=== PATIENT | male | born 1955 | race Caucasian/White ===

== ENCOUNTER 2022-05-30 16:57 | Inpatient (IN) | payer MEDICARE ==
[~2022-05-30] VITALS: Ht 182.9 cm; Wt 113.4 kg
[2022-05-30 18:14] LABS: BASOPHILS ABSOLUTE AUTO 0.13 K/mm3 (0.00-0.23); BASOPHILS PERCENT AUTO 1 % (0-2); EOSINOPHILS ABSOLUTE AUTO 0.14 K/mm3 (0.00-0.68); EOSINOPHILS PERCENT AUTO 1 % (0-6); Hematocrit 38.6 % (37.0-53.0); Hemoglobin 12.7 g/dL (13.5-17.5); IMMATURE GRAN ABSOLUTE AUTO 0.42 K/mm3 (0.00-0.10); IMMATURE GRAN PERCENT AUTO 2 % (0-1); LYMPHOCYTES ABSOLUTE AUTO 1.54 K/mm3 (0.84-5.20); LYMPHOCYTES PERCENT AUTO 8 % (21-46); MONOCYTES ABSOLUTE AUTO 1.49 K/mm3 (0.16-1.47); MONOCYTES PERCENT AUTO 7 % (4-13); Mean Corpuscular HGB 29.9 pg (26.0-34.0); Mean Corpuscular HGB Conc 32.9 g/dL (31.5-36.5); Mean Corpuscular Volume 91 fL (80-100); Mean Platelet Volume 9.3 fL (9.1-12.4); NEUTROPHILS ABSOLUTE AUTO 16.37 K/mm3 (1.96-9.15); NEUTROPHILS PERCENT AUTO 82 % (41-73); Platelet Count 668 K/mm3 (150-400); RDW Coefficient Variation 15.7 % (11.7-14.2); RDW Standard Deviation 50.4 fL (35.1-46.3); Red Blood Cell Count 4.25 M/mm3 (4.30-5.90); White Blood Cell Count 20.09 K/mm3 (4.00-11.30)
[2022-05-30 18:38] LABS: Albumin/Globulin Ratio 0.4 (0.8-1.8); Bilirubin, Total 0.9 mg/dL (0.1-1.0); Bun/Creatinine Ratio 30.2 (12.0-20.0); Calcium, Blood 9.2 mg/dL (8.5-10.1); Creatinine, Blood 1.49 mg/dL (0.60-1.20); Globulin, Blood 5.2 g/dL (2.2-4.0); Potassium, Blood 4.8 mmol/L (3.5-5.5); Total Protein, Blood 7.2 g/dL (6.4-8.2)
[2022-05-30 18:42] LABS: CPK Creatine Kinase 215 U/L (39-308)
[2022-05-30 23:39] LABS: Source, Urine Foley catheter
[2022-05-30 23:46] LABS: Blood, Urine 3+ (Neg); Glucose Qualitative, Urine Neg (Neg); Ketones, Urine Neg (Neg); Leukocyte Esterase, Urine 2+ (Neg); Nitrite, Urine Pos (Neg); Protein, Urine 2+ (Neg); Urobilinogen, Urine 2+ (Normal)
[2022-05-30 23:54] LABS: Appearance, Urine Hazy (Clear); Bilirubin, Urine 1+ (Neg); Color, Urine Amber (P-Yellow)
[2022-05-30 23:55] LABS: Amorphous Light (0-Heavy); Bacteria Mod /hpf; Mucus Light (0-Heavy); Squamous Epithelial Cells Not Seen /hpf (Few)
[2022-05-31 00:03] LABS: U Amphetamine Screen Not Detected; U Barbituate Screen Not Detected; U Benzodiazapine Screen Not Detected; U Buprenorphine Screen Not Detected; U Cannabinoids Screen Not Detected; U Cocaine Screen Not Detected; U Methadone Screen Not Detected; U Methamphetamine Screen Not Detected; U Opiates Screen Not Detected; U Oxycodone Screen Not Detected; U Phencyclidine Screen Not Detected
[2022-05-31 00:04] LABS: U Propoxyphene Screen Not Detected
--- NOTE | 2022-05-31 03:21 | NUR ---
NEW ADMIT FROM ED. PT A&O X 2-3. VSS. MULTIPLE SKIN WOUNDS. SKIN ASSESSMENT COMPLETED WITH JOSE Stout RN. PT HAD 4 LIVE MAGGOTS WRIGGLING AROUND IN 2 WOUND SITES ABOVE GROIN AND WERE REMOVED. 14 FR REYES CATHETER PLACED WITH TEA COLOR URINE OUTPUT. PT GIVEN BED BATH AND SHAMPOO CAP TO WASH HAIR. BED LINENS REPLACED. BED ALARM ON WILL CONTINUE TO MONITOR.
--- NOTE | 2022-05-31 03:26 | NUR ---
GENERAL SURGERY CONSULT PLACED TO DR. CHITRA POPE AT O3:10.
[2022-05-31 06:55] LABS: BASOPHILS PERCENT AUTO 1 % (0-2); EOSINOPHILS ABSOLUTE AUTO 0.45 K/mm3 (0.00-0.68); EOSINOPHILS PERCENT AUTO 3 % (0-6); Hematocrit 36.2 % (37.0-53.0); Hemoglobin 11.6 g/dL (13.5-17.5); IMMATURE GRAN ABSOLUTE AUTO 0.27 K/mm3 (0.00-0.10); IMMATURE GRAN PERCENT AUTO 2 % (0-1); LYMPHOCYTES ABSOLUTE AUTO 1.53 K/mm3 (0.84-5.20); LYMPHOCYTES PERCENT AUTO 9 % (21-46); MONOCYTES ABSOLUTE AUTO 1.44 K/mm3 (0.16-1.47); MONOCYTES PERCENT AUTO 9 % (4-13); Mean Corpuscular HGB 29.6 pg (26.0-34.0); Mean Corpuscular Volume 92 fL (80-100); Mean Platelet Volume 9.5 fL (9.1-12.4); NEUTROPHILS ABSOLUTE AUTO 13.06 K/mm3 (1.96-9.15); NEUTROPHILS PERCENT AUTO 78 % (41-73); Platelet Count 518 K/mm3 (150-400); RDW Coefficient Variation 15.7 % (11.7-14.2); RDW Standard Deviation 51.1 fL (35.1-46.3); Red Blood Cell Count 3.92 M/mm3 (4.30-5.90); White Blood Cell Count 16.85 K/mm3 (4.00-11.30)
[2022-05-31 07:15] LABS: Calcium, Blood 8.5 mg/dL (8.5-10.1); Creatinine, Blood 1.08 mg/dL (0.60-1.20); Potassium, Blood 4.4 mmol/L (3.5-5.5)
--- NOTE | 2022-05-31 20:35 | NUR ---
SHIFT SUMMARY PTN WITH EXTENSIVE WOUNDS TO GORAN-AREA, BUTTOCKS, BLE'S, AND MOST NOTABLY L FOOT WITH BLACK ESCHAR THAT IS MOSTLY ADHERENT. CONSULT BY DR POPE FOR WOUNDS AND PODIATRY DR ARRIOLA. MRI WAS ORDERED FOR L FOOT FOR SUSPECTED BONE INVOLVEMENT. TELEMTRY CALLED FOR A HR INTO THE 150'S WHICH RESOLVED QUICKLY, AND ONLY NOTED ONCE DURING SHIFT. CRITICAL LAB -RESUMBLIG CLOSTRIDIUM, DR CORRAL NOTIFIED. ANTIBIOTICS ADMINISTERED. REYES IN PLACE, DRAINING DARK JONATHAN COLORED URINE. NORMAL SALINE RUNNING AT 75 ML/HR. CBG'S AC/HS, WNL. PTN BEDBOUND AND MAXIMUM ASSIST. CONTINUE TO MONITOR.
--- NOTE | 2022-06-01 03:34 | NUR ---
RESPIRATORY: PATIENT HAS A LOOSE PRODUCTIVE COUGH, FINE CRACKLES AT THE BASES. IVF ARE INFUSING AT 75 MLS/HR, PATIENT HAS GOOD PO INTAKE. DR MCKEON IS NOTIFIED AND IVF ARE DC'D.
--- NOTE | 2022-06-01 03:36 | NUR ---
WOUNDS/PAIN: PATIENT IS VERY PAINFULL WITH T&P. TYLENOL WAS GIVEN WITH POOR EFFECT. DR MATIAS IS NOTIFIED AND ORDER FOR FENTANYL X1 DOSE FOR WOUND CARE WAS OBTAINED. MED WAS GIVEN WITH GOOD EFFECT.
[2022-06-01 06:54] LABS: BASOPHILS ABSOLUTE AUTO 0.11 K/mm3 (0.00-0.23); BASOPHILS PERCENT AUTO 1 % (0-2); EOSINOPHILS ABSOLUTE AUTO 0.43 K/mm3 (0.00-0.68); EOSINOPHILS PERCENT AUTO 3 % (0-6); Hematocrit 35.5 % (37.0-53.0); Hemoglobin 11.1 g/dL (13.5-17.5); IMMATURE GRAN ABSOLUTE AUTO 0.23 K/mm3 (0.00-0.10); IMMATURE GRAN PERCENT AUTO 2 % (0-1); LYMPHOCYTES ABSOLUTE AUTO 1.59 K/mm3 (0.84-5.20); LYMPHOCYTES PERCENT AUTO 12 % (21-46); MONOCYTES ABSOLUTE AUTO 1.01 K/mm3 (0.16-1.47); MONOCYTES PERCENT AUTO 7 % (4-13); Mean Corpuscular HGB 29.1 pg (26.0-34.0); Mean Corpuscular HGB Conc 31.3 g/dL (31.5-36.5); Mean Corpuscular Volume 93 fL (80-100); Mean Platelet Volume 9.3 fL (9.1-12.4); NEUTROPHILS ABSOLUTE AUTO 10.35 K/mm3 (1.96-9.15); NEUTROPHILS PERCENT AUTO 75 % (41-73); Platelet Count 486 K/mm3 (150-400); RDW Coefficient Variation 15.9 % (11.7-14.2); RDW Standard Deviation 52.3 fL (35.1-46.3); Red Blood Cell Count 3.81 M/mm3 (4.30-5.90); White Blood Cell Count 13.72 K/mm3 (4.00-11.30)
[2022-06-01 07:47] LABS: Bun/Creatinine Ratio 26.1 (12.0-20.0); Calcium, Blood 8.4 mg/dL (8.5-10.1); Creatinine, Blood 0.96 mg/dL (0.60-1.20); Potassium, Blood 4.3 mmol/L (3.5-5.5)
--- NOTE | 2022-06-01 07:53 | NUR ---
SHIFT SUMMARY: PATIENT HAD GOOD EFFECT FROM IV FENTANYL GIVEN FOR WOUND CARE. SOME COUGHING OBSERVED WHEN DRINKING PO FLUIDS WHEN HOB WAS LOW. PATIENT MUST BE SITTING ALL THE WAY UPRIGHT.
--- NOTE | 2022-06-01 19:48 | NUR ---
SHIFT SUMMARY NO ACUTE CHANGES THIS SHIFT. PTN WAS NOT RELIABLE IN ANSWERS FOR MRI OF LEFT LOWER EXTREMITY, AND DR MARCUS WAS CALLED WHO AGREED TO A CT SCAN. THIS WAS ORDERED BY DR CORRAL, BUT WHEN PTN WENT DOWN FOR CT SCAN HE COULD NOT LAY FLAT FOR THEM AND PROCEDURE DID NOT HAPPEN. DR MARCUS WAS AGAIN CONTACTED TODAY AND PLANS TO COME TOMORROW TO GET BONE BIOPSY. PTN SON CALLED AND WAS ABLE TO ANSWER THE QUESTIONS FOR MRI, HOWEVER, PTN 277 LBS AND WOULD NOT BE CANDIDATE ANYWAY. PTN ASKED IF HE WANTED SON CONTACT AND CONSENT FOR RELEASE OF INFORMATION WITH SON, AND HE SAID NO. HE DOES NOT WANT SON LISTED CONTACT AND DOES NOT WANT INFORMATION SHARED. IT SHOULD BE NOTED THE PTN IS POOR HISTORIAN AND PRESENTS WITH CONFUSION. THIS WILL BE PLACED IN A SEPARATE NURSE NOTE FOR RECORD, WELL MESSAGE WAS LEFT WITH CARE MANAGEMENT REGARDING THE PTN WISHES. CONTINUE TO MONITOR.
--- NOTE | 2022-06-01 19:56 | NUR ---
CONTACT INFORMATION PTN STATES HE IS NOT INTERESTED IN PLACING SON, ELIZABETH , ON HIS CONTACT LIST OR SHARING INFORMATION WITH HIM.
--- NOTE | 2022-06-02 05:43 | NUR ---
SHIFT SUMMARY: PATIENT REFUSED SECOND ATTEMPT TO COMPLETE CT OF LEFT FOOT/ANKLE. HE CONTINUES TO BE UNABLE TO TOLERATE THE BED FLAT EVEN FOR CARE AND TURNING. AFTER SOME EDUCATION ABOUT HIS WOUNDS AND THE INTERVENTIONS NEEDED TO TREAT THE PATIENT DID AGREE TO THE BED BEING ALMOST FLAT. WOUNDS ON BILAT BUTTOCKS/COCCYX AREA ARE BLEEDING WITH WOUND CARE CLEANSING. BILAT HEELS ARE ELEVATED ON PILLOWS AND ARE POSITIONED OFF THE BED.
[2022-06-02 06:37] LABS: BASOPHILS ABSOLUTE AUTO 0.11 K/mm3 (0.00-0.23); BASOPHILS PERCENT AUTO 1 % (0-2); EOSINOPHILS PERCENT AUTO 6 % (0-6); Hematocrit 32.7 % (37.0-53.0); Hemoglobin 10.2 g/dL (13.5-17.5); IMMATURE GRAN PERCENT AUTO 3 % (0-1); LYMPHOCYTES ABSOLUTE AUTO 1.64 K/mm3 (0.84-5.20); LYMPHOCYTES PERCENT AUTO 14 % (21-46); MONOCYTES ABSOLUTE AUTO 0.94 K/mm3 (0.16-1.47); MONOCYTES PERCENT AUTO 8 % (4-13); Mean Corpuscular HGB 28.3 pg (26.0-34.0); Mean Corpuscular HGB Conc 31.2 g/dL (31.5-36.5); Mean Corpuscular Volume 91 fL (80-100); Mean Platelet Volume 8.9 fL (9.1-12.4); NEUTROPHILS ABSOLUTE AUTO 8.26 K/mm3 (1.96-9.15); NEUTROPHILS PERCENT AUTO 69 % (41-73); Platelet Count 517 K/mm3 (150-400); RDW Coefficient Variation 15.9 % (11.7-14.2); RDW Standard Deviation 51.9 fL (35.1-46.3); White Blood Cell Count 12.05 K/mm3 (4.00-11.30)
[2022-06-02 06:59] LABS: Bun/Creatinine Ratio 21.5 (12.0-20.0); Calcium, Blood 8.3 mg/dL (8.5-10.1); Creatinine, Blood 0.7 mg/dL (0.60-1.20)
--- NOTE | 2022-06-02 08:00 | NUR ---
pt laying in bed with eyes closed, wakes easily, doesn't contribute to conversation, seems a bit disoriented, had to reposition him, explained that we must lay him back but didn't seem to understand, and yelled when layed back follows some commands, lungs are a bit course in [place], dim in bases, resp even and unlabored, no cough noted, hrr, has a teixeira cath draining shereen urine, has extensive wounds with oderous smell, pt is bed bound at this time, iv sites are clear and patent, btx4, abd flat soft nontender, briefs in palce for stool incont, call light in reach, returned to sleep when left undisturbed.
--- NOTE | 2022-06-02 14:28 | NUR ---
PT PENDING CT OF LLE TO DETERMINE TREATMENT COURSE OF LLE WOUNDS. WC RN WILL RETURN 06/03/22 FOR CONSULT
--- NOTE | 2022-06-02 15:17 | NUR ---
ASSISTED WITH REPOSITIONING PT IN BED, PT APPEARS TO BE UNCOMFORTABLE. RN TO GET MEDICATIONS FOR PT COMFORT. WILL COME BACK LATER TO ASSESS AND SPEAK TO THE PATIENT.
--- NOTE | 2022-06-02 18:14 | NUR ---
pt has been turned, he doesn't tolerate well, dressings to left leg changed, burning, medicated for that. no further changes this shift. call light in reach.
--- NOTE | 2022-06-03 05:14 | NUR ---
SHIFT SUMMARY PT A&O X 2-3- NEW ORDER FROM HOSPITIALIST FOR FENTANYL Q4 IV PT PAINFUL DURING REPOSITIONING REPOSITIONING- PT HAS WOUNDS BILAT LEGS, BUTTOCKS, SACRUM, SCROTUM, PENIS- APPLIED MEPILEX TO LEFT HEEL/ANKLE WHICH HAS BONE EXPOSURE- ESCHAR IN SACRAL AREA AND LEFT FOOT- MEPILEX REMOVE EASY D/T LARGE AMOUNT OF DRAINAGE FROM WOUNDS- APPLIED POWDER TO PANNUS, UNDER BREAST AREA, AND BACK FOLD- IV X2 BILAT AC- LAC INFUSING AT 20ML/HR
--- NOTE | 2022-06-03 17:01 | NUR ---
HANDBELL CHOIR DIRECTOR MAGGIE UNABLE TO SEE THE PT THIS SHIFT, PLAN TO COME TAKE PHOTOS AND DRESS SACRUM, SCROTAL AND BILAT THIGHS.
--- NOTE | 2022-06-03 18:05 | NUR ---
SHIFT SUMMARY PT A&OX4 AND IN PLEASENT MOOD T/O SHIFT. DR. LOCKE AND DR. BOJORQUEZ CONSULTED THIS SHIFT-PT CURRENTLY IN REVASC, PLAN FOR PCU TRANSFER POST PROCEDURE. WOUNDS CLEANED AND REDRESSED THIS SHIFT-WOUND CARE CONSULT PUT IN THIS SHIFT-WOUND RN LORNE PLANS TO COME SEE PT IN AM. TOLERATING PO INTAKE @ THIS TIME, PT NPO @ 0000 FOR POSSIBLE L BKA TOMORROW. PT REFUSED COG EVAL APPROX. 1/[address] REYES IN [address]ACE.
--- NOTE | 2022-06-03 18:15 | NUR ---
Pt transfered from [facility], received tele phone report from Ayah, bedside report from mason tender restoration labor. Right groin site, slight amount of blood noted to dressing, will continue to monitor. Pt educated on activity restrcitions, on bedrest. Will continue to monitor.
--- NOTE | 2022-06-03 19:00 | NUR ---
RECEIVED REPORT FROM JAMES ALEGRIA. CHECKED RIGHT GROIN SITE, SOME BLOOD PREVIOUSLY NOTED; HOWEVER, SITE IS CURRENTLY STABLE. PT STILL LAYING FLAT AND SUPINE. WILL CONTINUE TO MONITOR
[2022-06-04 04:04] LABS: Hematocrit 29.9 % (37.0-53.0); Hemoglobin 9.2 g/dL (13.5-17.5); Mean Corpuscular HGB 28.3 pg (26.0-34.0); Mean Corpuscular HGB Conc 30.8 g/dL (31.5-36.5); Mean Corpuscular Volume 92 fL (80-100); Mean Platelet Volume 8.9 fL (9.1-12.4); Platelet Count 554 K/mm3 (150-400); RDW Coefficient Variation 16.5 % (11.7-14.2); RDW Standard Deviation 53.1 fL (35.1-46.3); Red Blood Cell Count 3.25 M/mm3 (4.30-5.90); White Blood Cell Count 12.15 K/mm3 (4.00-11.30)
[2022-06-04 04:20] LABS: Calcium, Blood 8.2 mg/dL (8.5-10.1); Creatinine, Blood 0.69 mg/dL (0.60-1.20); Potassium, Blood 4.1 mmol/L (3.5-5.5)
--- NOTE | 2022-06-04 06:13 | NUR ---
Shift summary: Pt mostly had uneventful night. He is alert and oriented, but forgetful at times, but makes needs known. C/O pain to LLE and back that was relieved by oxycodone. Pt in SR, BP normotensive. On RA with O2 sats in low 90s. Multiple wounds, excoriation and flaky skin noted. Tran still in place draining dark yellow urine. Will pass on to next shift that pt is supposed to go to surgery today for an I&D and possibly an AKA, even though pt has stated that the doctors said that he does not need surgery anymore after the tests that they ran.
--- NOTE | 2022-06-04 09:40 | NUR ---
0800 assumed care of patient.. Patient was sleeping this am at rounds but woke easily. He has soft bp and oxygenation 89-91% on room air he does increase to 92% when encouraged to take a deep breath. He has multiple wounds throughout legs and per region and and scrotum and coccyx. He has been washed down and wounds redressed with clean mepilex dressings. Teixeira care completed.. and panis and underbreast have been powerdered as directed. Patient was given pain medication before wound treatment was done, with fentanyl and roxycodone. Patient has one iv to right wrist tko and teixeira with yellow urine out from it. Patient ate is breakfast without difficulty feeding himself with tray set up. His blood sugar was 102 this am and not needing coverage. Dr Stanley and Dr Erickson came by this am and explained his treatment options and patient has decided to hold off the AKA surgery for now. Wound care was consulted. Will continue care as directed.
--- NOTE | 2022-06-04 14:24 | NUR ---
WOUND CARE- PT REFUSED WOUND PHOTOS AT THIS TIME- PT EDUCATED THAT THIS HELPS STAFF TRACK WOUND PROGRESS AND HELPS DECIDE PLAN OF CARE. HE STILL DECLINED. EDUCATION OF RISK VS BENEFIT OF AKA REINFORCED. THIS RN ATTEMPTED TO TALK ABOUT L CALCANEOUS PROBABILTY OF HEALING WITH DIFFERENT OPTIONS. PT DID NOT WISH TO DISCUSS AT THIS TIME. PT HAS MULTIPLE FULL AND PARTIAL THICKNESS WOUNDS ON BLE, GORAN-AREA, AND SCROTUM. 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 AIR BED ORDERED. NICKEL THICK BARIER CREAM/ANTIFUNGAL POWDER TO BLE POSTERIOR THIGHS, COCCYX, BUTTOCKS AND SCROTUM. DUE TO AMOUNT OF WOUNDS, LIMITED MOBILTY, AND HIGH PAIN LEVEL THIS RN RECOMMENDS JUST A CLEAN DRY CHUX UNDER THESE AREAS WITH CONSISTENT OFFLOADING. CALCIUM ALGINATE, ABD, ROLLED GAUZE PLACED ON BLE AN L CALCANEOUS WOUND.
--- NOTE | 2022-06-04 18:13 | NUR ---
PT SUMMARY; ASSUMED CARE AT 1100 REPORT RECEIVED FROM DOMINGO ALEGRIA. WOUND CARE NURSE WAS IN THE ROOM DURING REPORT REDRESSING ALL WOUNDS. RECOMMENDED CALCIUM ALGINATE ON LEFT HEEL AND BACK OF RIGHT LOWER EXTREMITIES. PT PAINFUL WHEN EXTREMITIES ARE MOVED DIDNT REQUEST FOR ANY PAIN MEDICINE AFTER WOUND WAS REDRESSED ORDER TO FLOAT HEELS, WBAT ON LEFT FOOT. PT WAS ALSO SWITCHED TO AIRBED TO PROMOTE WOUND HEALING. BED BATH WAS PROVIDED. PT REFUSED PHYSICAL THERAPY STATED HE GOT UP 15 TIMES ALREADY FOR THE SHIFT, WHICH HE ONLY SAT ON THE SIDE OF THE BED ONCE WHILE GETTING THE WOUND DRESSING CHANGED. REPOSITIONED Q2HRS FOR COMFORT. REYES DRAINING DARK YELLOW URINE WITH SEDIMENTS VIA GRAVITY. CONTINUES TO RECEIVED IV ABO. PALLIATIVE CARE NURSE CAME IN TO DISCUSS FURTHER PLAN TO AMPUTATE RIGHT LEG PT IN REFUSAL, PT STILL HOPING WOUNDS WILL HEAL WITHOUT THE NEED OF DOING THE AMPUTATION PER PALLIATIVE CARE NURSE, TO READDRESS AGAIN AND FF-UP TOMORROW. VITALS HAS BEEN STABLE. PT WAS THEN TRANSFERRED TO 306 REPORT GIVEN TO JUSTUS ALEGRIA. PT TRANSFERRED VIA BED ALL BELONGINGS SENT WITH THE PT.
--- NOTE | 2022-06-04 18:28 | NUR ---
CARE CONFERENCE WITH RN, SHE REPORTS PT IS COOPERATIVE BUT HAD BEEN REFUSING TREATMENT WITH PT, WOUND NURSE AND REFUSES SURGERY. MET WITH PT IN ROOM, HE IS SITTING UP IN BED, FACE RELAXED AND RESP EVEN AND UNLABORED, HE APPEARS TO BE COMFORTABLE. PT REPORTS HIS PAIN HAS BEEN PRETTY BAD, BUT TODAY IS MUCH BETTER WITH MEDICATIONS. DISCUSSED WITH PT HIS CURRENT STATUS AND THAT THE DOCTORS ARE RECOMENDING SURGERY TO AMPUTATE. PT AGAIN REFUSES TO TALK ABOUT SURGERY BECAUSE HE FEELS THAT HIS LEGS WILL HEAL. ATTEMPTED TO DISCUSS WHAT HE WOULD DO IF HIS WOUNDS DO NOT HEAL AND AGAIN HE DOES NOT WISH TO HAVE SURGERY OR AMPUTATION. UNCLEAR IF PT IS ABLE TO TRULY UNDERSTAND THE SERIOUSNESS OF HIS SITUATION AND PROCESSING THE INFORMTATION. WE DISCUSSED SOME ADVANCED CARE PLANNING AND THAT IT WOULD NOT BE THE BEST PLAN FOR HIM TO GO BACK TO LIVING IN HIS CAR. ATTMEPTED TO DISCUSS THE POTENTION OF DC TO SNF FOR ONGOING THEREAPY AND WOUND CARE-PT AGREES THAT HE CANNOT GO BACK TO LIVING IN HIS CAR. PT SUGGESTS THAT WHEN HE GETS BETTER HE WOULD LIKE TO MOVE TO [place] TO LIVE IN A [place], OR MOVE TO [place] TO LIVE IN [facility] AND SOMEONE THERE COULD HELP TAKE CARE OF HIM. HE CANNOT PROVIDE ADDITIONAL DETAILS OF WHO HE SPOKE TO ABOUT THIS PLAN. PT REPORTS THAT HE SPOKE TO HIS SON TODAY AND MAYBE HE COULD TALK TO HIM ABOUT LIVING WITH HIM. PT DOES NOT KNOW WHERE HIS SON LIVES AND PLANS TO TALK TO HIM ABOUT THIS TOMORROW. ENCOURAGED PT TO CONTINUE TO THINK ABOUT WHAT HE WANTS TO DO AND GO AFTER DC, HE VU. PT APPEARED TO BE FEELING OVERWHELMED WITH ALL THIS INFORAMTION AND QUESTIONS ALL AT ONCE, PLAN TO VISIT AGAIN ON THURSDAY FOR ADDITIONAL PLANNING AND ATTEMPT TO DISCUSS FURTHER ABOUT HIS PROGNOSIS, SITUATION AND OPTIONS FOR TREATMENT. RN UPDATED AND PALLIATIVE CARE WILL CONTINUE TO FOLLOW AND OFFER SUPPORT.
--- NOTE | 2022-06-04 18:58 | NUR ---
TRANSFER NOTE PATIENT IS ALERT AND ORIENTED. PATIENT TRANSFERRED FROM PCU9 TO 306. PATIENT ORIENTED TO ROOM. WILL MONITOR UNTIL SHIFT CHANGE.
--- NOTE | 2022-06-05 04:36 | NUR ---
Patient resting in bed at this time, pain controlled with prn medications.
[2022-06-05 16:24] LABS: BASOPHILS ABSOLUTE AUTO 0.08 K/mm3 (0.00-0.23); BASOPHILS PERCENT AUTO 1 % (0-2); EOSINOPHILS ABSOLUTE AUTO 0.24 K/mm3 (0.00-0.68); EOSINOPHILS PERCENT AUTO 3 % (0-6); Hematocrit 26.6 % (37.0-53.0); Hemoglobin 9.4 g/dL (13.5-17.5); IMMATURE GRAN ABSOLUTE AUTO 0.35 K/mm3 (0.00-0.10); IMMATURE GRAN PERCENT AUTO 4 % (0-1); LYMPHOCYTES ABSOLUTE AUTO 0.73 K/mm3 (0.84-5.20); LYMPHOCYTES PERCENT AUTO 9 % (21-46); MONOCYTES ABSOLUTE AUTO 0.81 K/mm3 (0.16-1.47); MONOCYTES PERCENT AUTO 10 % (4-13); Mean Corpuscular HGB 33.7 pg (26.0-34.0); Mean Corpuscular HGB Conc 35.3 g/dL (31.5-36.5); Mean Corpuscular Volume 95 fL (80-100); Mean Platelet Volume 8.7 fL (9.1-12.4); NEUTROPHILS ABSOLUTE AUTO 6.09 K/mm3 (1.96-9.15); NEUTROPHILS PERCENT AUTO 73 % (41-73); NRBC ABSOLUTE 0.02 K/mm3 (0.00-0.02); NRBC Auto 0.2 /100 WBC (0.0-0.2); Platelet Count 456 K/mm3 (150-400); RDW Coefficient Variation 18.8 % (11.7-14.2); RDW Standard Deviation 54.8 fL (35.1-46.3); Red Blood Cell Count 2.79 M/mm3 (4.30-5.90)
[2022-06-05 16:41] LABS: Albumin, Blood 1.5 g/dL (3.4-5.0); Albumin/Globulin Ratio 0.4 (0.8-1.8); Bilirubin, Total 0.2 mg/dL (0.1-1.0); Bun/Creatinine Ratio 14.9 (12.0-20.0); Calcium, Blood 8.1 mg/dL (8.5-10.1); Creatinine, Blood 0.67 mg/dL (0.60-1.20); Globulin, Blood 4.2 g/dL (2.2-4.0); Potassium, Blood 4.4 mmol/L (3.5-5.5); Total Protein, Blood 5.7 g/dL (6.4-8.2)
--- NOTE | 2022-06-05 16:57 | NUR ---
SHIFT SUMMARY PATIENT IS ALERT AND ORIENTED. PATIENT HAS NOT HAD ANY ACUTE EVENTS THIS SHIFT. VITAL SIGNS REVIEWED. PATIENT STATES THAT TORCH SOLDERER REDID HIS BANDAGES. PATIENT RECEIVED A BED BATH TODAY AND REVIEWED BANDAGES AND REPLACED BANDAGES THAT NEEDED REPLACING. PATIENT HAS HAD A HIGH TEMP BUT MEDICATION HAD IT COME DOWN TO 99. PATIENT HAS NOT COMPLAINED OF PAIN, NAUSEA, SOB OR VOMITTING THIS SHIFT. BED IN LOCKED AND LOWEST POSITION. CALL LIGHT IN PLACE. WILL MONITOR UNTIL SHIFT CHANGE.
--- NOTE | 2022-06-05 21:55 | NUR ---
Patient refusing dressing changes.
--- NOTE | 2022-06-06 05:04 | NUR ---
Patient resting at this time, O2 started as sats were low, new respiratory orders were placed, new IV placed, and still refusing dressing changes to wounds.
--- NOTE | 2022-06-06 07:33 | NUR ---
PATIENT O2 AT 0730 WAS IN 70'S. PATIENT DECLINE TO WEAR O2 VIA NC. EDUCATE PATIENT THE IMPORTANCE OF HAVING SUPPLEMENTAL OXYGENATION. PATIENT CONTINUED TO DECLINE. PATIENT STATED "IT'S OKAY TO AND IT'S MY CHOICE." CLAY THROWER WAS NOTIFIED AND WAS ADVICE TO NOTIFIED HOSPITALIST. SPOKE TO DR. RANGEL REGARDING PATIENT SITUATION. DR. RANGEL ORDER TO GET HOLD WITH PALLIATIVE CARE TO SPEAK WITH PATIENT. CALLED PALLIATIVE CARE AT AROUND [id number] AND LEFT A MESSAGE TO CALLED THIS RN.
--- NOTE | 2022-06-06 07:49 | NUR ---
RT CAME IN AND ASSESS PATIENT O2 ON RA. O2 WAS IN 70'S. RT EDUCATE PATIENT THE IMPORTANCE OF HAVING SUPPLEMENTAL OXYGENATION. PATIENT CONTINUE TO DECLINE. RT SPOKE TO DR. RANGEL REGARDING PATIENT OXYGENATION.
[2022-06-06 08:38] LABS: BASOPHILS ABSOLUTE AUTO 0.05 K/mm3 (0.00-0.23); BASOPHILS PERCENT AUTO 1 % (0-2); EOSINOPHILS ABSOLUTE AUTO 0.06 K/mm3 (0.00-0.68); EOSINOPHILS PERCENT AUTO 1 % (0-6); Hematocrit 31.7 % (37.0-53.0); IMMATURE GRAN ABSOLUTE AUTO 0.27 K/mm3 (0.00-0.10); IMMATURE GRAN PERCENT AUTO 4 % (0-1); LYMPHOCYTES ABSOLUTE AUTO 0.95 K/mm3 (0.84-5.20); LYMPHOCYTES PERCENT AUTO 13 % (21-46); MONOCYTES ABSOLUTE AUTO 0.86 K/mm3 (0.16-1.47); MONOCYTES PERCENT AUTO 12 % (4-13); Mean Corpuscular HGB 28.9 pg (26.0-34.0); Mean Corpuscular HGB Conc 31.5 g/dL (31.5-36.5); Mean Corpuscular Volume 92 fL (80-100); Mean Platelet Volume 8.7 fL (9.1-12.4); NEUTROPHILS ABSOLUTE AUTO 5.17 K/mm3 (1.96-9.15); NEUTROPHILS PERCENT AUTO 70 % (41-73); Platelet Count 413 K/mm3 (150-400); RDW Coefficient Variation 17.2 % (11.7-14.2); RDW Standard Deviation 55.8 fL (35.1-46.3); Red Blood Cell Count 3.46 M/mm3 (4.30-5.90); White Blood Cell Count 7.36 K/mm3 (4.00-11.30)
[2022-06-06 08:51] LABS: Albumin, Blood 1.6 g/dL (3.4-5.0); Anion Gap 3 mmol/L (6-16); Blood Urea Nitrogen 8 mg/dL (8-24); CO2, Blood 33 mmol/L (21-32); Calcium, Blood 8.1 mg/dL (8.5-10.1); Chloride, Blood 102 mmol/L (98-108); Creatinine, Blood 0.73 mg/dL (0.60-1.20); Glomerular Filtration Rate 98 (60-); Glucose, Blood 100 mg/dL (70-99); Phosphorus, Blood 3.2 mg/dL (2.5-4.9); Potassium, Blood 4.3 mmol/L (3.5-5.5); Sodium, Blood 138 mmol/L (136-145)
--- NOTE | 2022-06-06 09:34 | NUR ---
Called to meet with patient about his not wanting to wear his oxygen and accept certain treatments. Pt was alert and at time argumentative. Went slow with him and had a vibrant discussion about his care needs. Pt kept trying to divert to Im on antibiotics and I just need time. Then [employer] will help me with housing. Continued to bring pt back to the facts of his dottie. He was very angry at the bluntness of the conversation. However, was finally able to get him to discuss some realities. He does not want to go on a ventilator or have life support. He does not want surgery. We discussed that he may not survive this event due to infection and lack of mobility. reassured him we want to give him the best care. Advissed him that if he continues to decline and suffer we will need to discuss comfort care only. He stated he understood. Spent some theraputic time with pt got him a snack. Advised him he is probably not going to like some of our conversations but, we will help you and advocate for you. But we need to know your wishes. Asked him to tell me his story. He laughed and said you dont want to know. Asked him if I could come check on him daily he was ok with visits. pt kps score is 40%. He is high risk for aspiration and failure to thrive. recommend placement on hospice. reveiwed dnr with pt he is accepting. Updated physician and care cristiane and OT/PT.
--- NOTE | 2022-06-06 17:32 | NUR ---
Multiple visits to patient to today. He has had multiple conversations with healthcare market consultant, nursing , physican and myself. He would like to contact his son but has no idea how to do it. He does not want treatment. Saw him this evening his temp is climbing and got him to wear the oxygen and waited til his saturations were up and discussed comfort care. Kept it brief. Discusssed his great suffering and why the healthcare market consultant spoke of hospice. He is in agreement. physican asked that i speak with Braulio negron and place ethics consult. Review of his prognositcation and life struggles. Comfort care fits the values of [facility] and compassionate care and matches how he has lived his life. pt placed on comfort care due to his increasing symptoms and kps score of 30%. His ability to tolerate surgery or rehab are marginal due to his untreated chronic diseases and severe wounds. Goal is dignity and comfort for this unfornunate man.
--- NOTE | 2022-06-06 18:07 | NUR ---
SHIFT SUMMARY: PATIENT ALERT AND ORIENTED TO SELF AND SORROUNDINGS. PATIENT HAS BEEN DECLINING MOST OF THE CARE THIS SHIFT. PATIENT O2 WAS IN THE 70'S. DECLINE OXYGEN SUPPLEMENTATION VIA NC. EDUCATE PATIENT THE RISK AND BENIFITS OF HAVING ADEQUATE OXYGENATION. PATIENT CONTINUED TO DECLINE. PATIENT DECLINE DRESSING TO BLE'S. DECLINE REPOSITION AND ATTENDS CHANGED T/O SHIFT. CAMILLE LEE FROM PALLIATIVE CARE TEAM SPOKE WITH PATIENT T/O THE DAY. PATIENT IS ON COMFORT CARE. NO VITALS. BED IN LOWEST POSITION, LOCK AND ALARM ON FOR SAFETY. CALL LIGHT IN REACH.
--- NOTE | 2022-06-07 03:28 | NUR ---
Patient resting in bed at this time, prn medication given earlier for agitation, medication was effective.
--- NOTE | 2022-06-07 09:11 | NUR ---
Documentation Patient on comfort care. TOD pronounced by Apple, RN and Phillip, RN at [phone]. Nursing sup Supa and Dr. Hicks notified. Per donor line, not candidate. Could not find next of kin or family. Body released to [facility] from [facility]. Post mortem care done by [facility]. Chelsea removed. No personal belongings.
== END 2022-06-07 06:45 | DRG 871 ==
LOC: ER 16:57 → MEDS 20:01 → ERHOLD 20:01 → MEDS 22:51 → PCU 06-03 18:11 → MEDS 06-04 18:00
PROVIDERS: Emergency Medicine; Family Medicine; Internal Medicine; ADMIT Internal Medicine
PROC: 3E03329 Introduction of Other Anti-infective into Peripheral Vein, Percutaneous Approach (ICD-10-PCS; 2022-05-30)
PROC: B41DYZZ Fluoroscopy of Aorta and Bilateral Lower Extremity Arteries using Other Contrast (ICD-10-PCS; principal; 2022-06-03)
PROC: B44FZZZ Ultrasonography of Right Lower Extremity Arteries (ICD-10-PCS; 2022-06-03)
DX: A41.4 Sepsis due to anaerobes (principal); G92.8 Other toxic encephalopathy; R65.21 Severe sepsis with septic shock; J96.01 Acute respiratory failure with hypoxia; L03.115 Cellulitis of right lower limb; L03.116 Cellulitis of left lower limb; N17.9 Acute kidney failure, unspecified; L97.421 Non-pressure chronic ulcer of left heel and midfoot limited to breakdown of skin; E11.52 Type 2 diabetes mellitus with diabetic peripheral angiopathy with gangrene; I96 Gangrene, not elsewhere classified; Z51.5 Encounter for palliative care; Z66 Do not resuscitate; L89.150 Pressure ulcer of sacral region, unstageable; F17.210 Nicotine dependence, cigarettes, uncomplicated; E11.621 Type 2 diabetes mellitus with foot ulcer; L89.320 Pressure ulcer of left buttock, unstageable; L89.310 Pressure ulcer of right buttock, unstageable; L89.620 Pressure ulcer of left heel, unstageable; L89.890 Pressure ulcer of other site, unstageable; L89.520 Pressure ulcer of left ankle, unstageable; N50.89 Other specified disorders of the male genital organs; N18.30 Chronic kidney disease, stage 3 unspecified; E11.22 Type 2 diabetes mellitus with diabetic chronic kidney disease; E66.9 Obesity, unspecified; Z59.02 Unsheltered homelessness; Z68.33 Body mass index [BMI] 33.0-33.9, adult; Z74.1 Need for assistance with personal care; B87.1 Wound myiasis; Z53.29 Procedure and treatment not carried out because of patient's decision for other reasons
CPT/HCPCS: 36415; 71045; 73552; 73590; 73620; 73630; 76870; 76937; 80048; 80053; 80069; 81001; 82140; 82550; 82607; 82746; 82947; 83036; 83605; 83880; 84145; 85025; 85027; 85651; 86140; 87040; 87076; 87086; 93005; 93010; 94760; 96361; 96365; 96368; 97110; 97161; 97166; 97530; 99152; 99153; 99285-25; A9270; C1760; C1769; C1887; C1894; J0295; J0692; J0696; J1644; J1650; J2060; J2250; J3010; J3370; J3411; J7030; J7040; J7050; Q9967